=== PATIENT | female | born 1970 | race Caucasian/White ===

== ENCOUNTER 2018-12-15 15:27 | Emergency (ER) | payer BC ==
[~2018-12-15] VITALS: Ht 165.1 cm; Wt 74.5 kg
[2018-12-15] MEDS ORDERED: DOXY100C43 PO (16:32)
[2018-12-15] MEDS ORDERED: METR-159 PO (16:32)
[2018-12-15] MEDS ORDERED: FLUC150T66 PO (16:32)
[2018-12-15] MEDS ORDERED: HYDR50CA PO (16:33)
[2018-12-15 16:52] VITALS: BP 129/87
== END 2018-12-15 16:54 | disposition home or self-care (01) ==
LOC: ER 15:28
DX: T19.2XXA Foreign body in vulva and vagina, initial encounter (principal); N89.8 Other specified noninflammatory disorders of vagina; F41.9 Anxiety disorder, unspecified; Z88.2 Allergy status to sulfonamides; W22.8XXA Striking against or struck by other objects, initial encounter; Y93.89 Activity, other specified; Y92.89 Other specified places as the place of occurrence of the external cause; Y99.8 Other external cause status
CPT/HCPCS: 99283